=== PATIENT | male | born 2000 | race Caucasian/White ===

== ENCOUNTER 2023-06-01 13:42 | Outpatient (CLI) | payer OTHER ==
--- NOTE | 2023-06-01 17:38 | MRI Report ---
PROCEDURE: LUMBAR SPINE WO INDICATIONS: LOW BACK PAIN TECHNIQUE: Noncontrast sagittal T1 spin echo and T2 fast echo, sagittal STIR, axial T1 and T2 fast spin echo thr ough the lumbar spine. In cases with scoliosis, additional coronal T2 fast spin echo may be performe d. COMPARISON: None. FINDINGS: Image quality: Excellent. Alignment and Curvature: There is normal bony alignment. Bone Marrow: Marrow is of normal overall signal. No acute vertebral body compression fractures. Spinal Cord: Conus medullaris terminates at the L1-L2 level. Visualized cord demonstrates normal si gnal and size. Paraspinous Soft Tissues: No paravertebral masses. T12-L1: Normal in appearance. L1-L2: Normal in appearance. L2-L3: Normal in appearance. L3-L4: Mild facet joint fluid. No canal stenosis or foraminal stenosis. L4-L5: Disc bulge. No canal stenosis or foraminal stenosis. L5-S1: Moderately large central posterior disc protrusion indenting on the thecal sac, resulting in m oderate canal stenosis, abutting the bilateral S1 nerve roots in the lateral recesses. It has some hi gh signal within it suggesting possible relative acuity. The disc protrusion measures approximately 1 .2 x 1.8 x 0.8 cm. No foraminal stenosis. IMPRESSION: L5-S1, there is a moderately large central posterior disc protrusion, indenting on the thecal sac, re sulting in moderate canal stenosis, abutting the bilateral S1 nerve roots in the lateral recesses. Reviewed by: Sachin Pagan MD on 06/01/2023 5:37 PM PDT Approved by: Sachin Pagan MD on 06/01/2023 5:37 PM PDT Station ID: [id number]
== END 2023-06-01 13:43 | disposition home or self-care (01) ==
LOC: DI 13:42
DX: M51.27 Other intervertebral disc displacement, lumbosacral region (principal); M48.07 Spinal stenosis, lumbosacral region